=== PATIENT | female | born 1940 | race African-American/Black ===

== ENCOUNTER 2021-07-16 21:05 | Emergency (ER) | payer MEDICARE, OTHER ==
[2021-07-16 21:35] VITALS: BP 132/83; PULSE 96; TEMP 98.6; BMI 26.6
[2021-07-16] MEDS ORDERED: LIDOCAINE PATCH REMOVAL MC SCH (22:00)
[2021-07-16] MEDS ORDERED: LIDOCAINE 5% TOPICAL PATCH TP ONE (23:46)
[2021-07-16] MEDS ORDERED: ACETAMINOPHEN 500 MG TABLET (FP) PO ONE (23:46)
[2021-07-16] MEDS ORDERED: KETOROLAC TROMETHAMINE 30 MG/1 ML VIAL IM ONE (23:46)
[2021-07-17] MEDS ORDERED: LIDOCAINE 5% TOPICAL PATCH ONE (00:44)
[2021-07-17] MEDS ORDERED: KETOROLAC TROMETHAMINE 30 MG/1 ML VIAL ONE (00:44)
[2021-07-17] MEDS ORDERED: ACETAMINOPHEN 325 MG TABLET (FP) ONE (00:44)
[2021-07-17 01:21] LABS: EPI CELLS 15 /uL (0-25.1); HYALINE CASTS 1 /uL (0-3.1); URINE APPEARANCE CLEAR; URINE BACTERIA 139 /uL (0-1359); URINE BILIRUBIN NEGATIVE (NEGATIVE); URINE COLOR YELLOW; URINE GLUCOSE (UA) NEGATIVE (NEGATIVE); URINE KETONE NEGATIVE (NEGATIVE); URINE LEUK ESTERASE 1+ (NEGATIVE); URINE NITRITE NEGATIVE (NEGATIVE); URINE PROTEIN TRACE (NEGATIVE); URINE RBC 108 /uL (0-23.9); URINE WBC 25 /uL (0-25.8)
[2021-07-17 01:57] LABS: BASO % 0.2 % (0-2.0); EOS % 0.1 % (0-4.5); HEMATOCRIT 37.2 % (32.4-45.2); HEMOGLOBIN 12.7 GM/dL (10.7-15.3); LYMPH % 19.9 % (8-40); MCHC 34.1 g/dl (32.0-36.0); MEAN CELL VOLUME 90.7 fl (80-96); MEAN PLT VOLUME 7.7 fl (7.5-11.1); MONO % 10.3 % (3.8-10.2); NEUT % 69.5 % (42.8-82.8); PLATELET COUNT 211 10^3/uL (134-434); RDW 15.7 % (11.6-15.6); WHITE BLOOD COUNT 8.1 K/mm3 (4.0-10.0)
[2021-07-17] MEDS ORDERED: CEFTRIAXONE 1 GM in DEXTROSE 5%-WATER - 100 ML IVPB ONE (02:22)
[2021-07-17 02:26] LABS: BLOOD UREA NITROGEN 13.8 mg/dL (7-18); CALCIUM 9.9 mg/dL (8.5-10.1)
[2021-07-17] MEDS ORDERED: POTASSIUM CHLORIDE ORAL LIQUID 20 MEQ/15 ML PO ONE (02:27)
[2021-07-17 02:30] LABS: CREATININE 0.9 mg/dL (0.55-1.3)
[2021-07-17 02:31] LABS: BILIRUBIN,TOTAL 0.4 mg/dL (0.2-1); TOT PROT 10.4 g/dl (6.4-8.2)
[2021-07-17] MEDS ORDERED: POTASSIUM CHLORIDE ORAL LIQUID 20 MEQ/15 ML ONE (02:46)
[2021-07-17] MEDS ORDERED: CEFTRIAXONE 1 GM/50 ML BAG ONE (02:46)
== END 2021-07-17 04:23 | disposition home or self-care (01) ==
LOC: JERFT 21:05 → JER 21:05
DX: E87.1 Hypo-osmolality and hyponatremia (principal); N85.2 Hypertrophy of uterus; N10 Acute pyelonephritis; M54.50 Low back pain, unspecified
CPT/HCPCS: 36415; 74176-TC; 80053; 81003; 85025; 87077; 87086; 99284-25

== ENCOUNTER 2021-07-18 14:42 | Emergency (ER) | payer OTHER ==
[2021-07-18 15:00] VITALS: BP 139/87; PULSE 86; TEMP 98.6; BMI 25.8
[2021-07-18] MEDS ORDERED: LIDOCAINE 5% TOPICAL PATCH TP ONE ×2 (15:36→16:09)
[2021-07-18] MEDS ORDERED: ACETAMINOPHEN 500 MG TABLET (FP) PO ONE (15:36)
[2021-07-18] MEDS ORDERED: LIDOCAINE 5% TOPICAL PATCH ONE ×2 (15:54→16:15)
[2021-07-18] MEDS ORDERED: ACETAMINOPHEN 325 MG TABLET (FP) ONE (15:54)
[2021-07-18] MEDS ORDERED: KETOROLAC TROMETHAMINE 30 MG/1 ML VIAL IM ONE (17:06)
[2021-07-18] MEDS ORDERED: KETOROLAC TROMETHAMINE 30 MG/1 ML VIAL ONE (17:12)
[2021-07-18] MEDS ORDERED: METHOCARBAMOL 500 MG TABLET PO ONE (18:15)
[2021-07-18] MEDS ORDERED: METHOCARBAMOL 500 MG TABLET ONE (18:30)
[2021-07-19] MEDS ORDERED: LIDOCAINE PATCH REMOVAL MC SCH ×2 (04:00→05:00)
== END 2021-07-18 20:13 | disposition home or self-care (01) ==
LOC: JER 14:42
PROC: 3E0233Z Introduction of Anti-inflammatory into Muscle, Percutaneous Approach (ICD-10-PCS; principal; 2021-07-18)
DX: M54.50 Low back pain, unspecified (principal)
CPT/HCPCS: 99284-25

== ENCOUNTER 2021-08-14 10:35 | Inpatient (IN) | payer OTHER ==
[2021-08-14] MEDS ORDERED: ACETAMINOPHEN 500 MG TABLET (FP) PO ONE (12:54)
[2021-08-14] MEDS ORDERED: ACETAMINOPHEN 325 MG TABLET (FP) ONE (13:39)
[2021-08-14] MEDS ORDERED: LIDOCAINE 5% TOPICAL PATCH TP ONE (13:40)
[2021-08-14] MEDS ORDERED: LIDOCAINE 5% TOPICAL PATCH ONE (14:04)
[2021-08-14 15:11] LABS: BASO % 0.2 % (0-2.0); EOS % 0.2 % (0-4.5); HEMATOCRIT 40.2 % (32.4-45.2); HEMOGLOBIN 13.2 GM/dL (10.7-15.3); LYMPH % 21.8 % (8-40); MCH 29.9 pg (25.7-33.7); MCHC 32.9 g/dl (32.0-36.0); MEAN PLT VOLUME 8.4 fl (7.5-11.1); MONO % 12.1 % (3.8-10.2); NEUT % 65.7 % (42.8-82.8); PLATELET COUNT 244 10^3/uL (134-434); RBC 4.42 M/mm3 (3.60-5.2); RDW 15.8 % (11.6-15.6); WHITE BLOOD COUNT 10.9 K/mm3 (4.0-10.0)
[2021-08-14 15:31] LABS: EPI CELLS 13 /uL (0-25.1); HYALINE CASTS 3 /uL (0-3.1); URINE APPEARANCE CLOUDY; URINE BACTERIA 34 /uL (0-1359); URINE BILIRUBIN NEGATIVE (NEGATIVE); URINE COLOR YELLOW; URINE GLUCOSE (UA) NEGATIVE (NEGATIVE); URINE KETONE NEGATIVE (NEGATIVE); URINE LEUK ESTERASE 1+ (NEGATIVE); URINE NITRITE NEGATIVE (NEGATIVE); URINE PROTEIN TRACE (NEGATIVE); URINE RBC 52 /uL (0-23.9); URINE WBC 17 /uL (0-25.8)
[2021-08-14 15:41] LABS: URINE CRYSTALS NEGATIVE /hpf
[2021-08-14] MEDS ORDERED: CEFTRIAXONE 1 GM in DEXTROSE 5%-WATER - 100 ML IVPB ONE (15:44)
[2021-08-14 15:45] LABS: CALCIUM 11.5 mg/dL (8.5-10.1)
[2021-08-14 15:46] LABS: ALBUMIN 3.2 g/dl (3.4-5.0); BLOOD UREA NITROGEN 17.8 mg/dL (7-18)
[2021-08-14 15:51] LABS: BILIRUBIN,TOTAL 0.3 mg/dL (0.2-1); TOT PROT 11.6 g/dl (6.4-8.2)
[2021-08-14] MEDS ORDERED: CEFTRIAXONE 1 GM/50 ML BAG ONE (16:02)
[2021-08-14] MEDS ORDERED: SODIUM CHLORIDE 0.9% 500 ML INFUS.BAG IV ONE (16:14)
[2021-08-14] MEDS ORDERED: KETOROLAC TROMETHAMINE 15 MG/ML VIAL IVPUSH ONE (17:16)
[2021-08-14] MEDS ORDERED: KETOROLAC TROMETHAMINE 15 MG/ML VIAL ONE (17:27)
[2021-08-14] MEDS ORDERED: LIDOCAINE PATCH REMOVAL MC ONE (22:00)
[2021-08-14] MEDS ORDERED: ACETAMINOPHEN 325 MG TABLET (FP) PO PRN (22:29)
[2021-08-14] MEDS ORDERED: KETOROLAC TROMETHAMINE 15 MG/ML VIAL IM PRN (22:31)
[2021-08-14] MEDS ORDERED: DOCUSATE SODIUM 100 MG CAPSULE (FP) PO ONE (23:34)
[2021-08-15] MEDS: LACTATED RINGERS SOLUTION 1,000 ML/1,000 ML INFUS.BAG IV SCH ×3 (00:01→23:05)
[2021-08-15] MEDS ORDERED: SENNOSIDES 8.6MG TABLET (FP) PO ONE (00:02)
[2021-08-15] MEDS ORDERED: DOCUSATE SODIUM 100 MG CAPSULE (FP) PO ONE (00:02)
[2021-08-15] MEDS ORDERED: KETOROLAC TROMETHAMINE 15 MG/ML VIAL ONE (00:07)
[2021-08-15] MEDS ORDERED: ACETAMINOPHEN 325 MG TABLET (FP) ONE (00:07)
[2021-08-15] MEDS: SENNOSIDES 8.6MG TABLET (FP) PO SCH ×2 (00:10→23:01)
[2021-08-15 02:34] VITALS: BMI 22.3
[2021-08-15] MEDS: LIDOCAINE PATCH REMOVAL MC SCH ×2 (02:34→23:00)
[2021-08-15] MEDS: KETOROLAC TROMETHAMINE 15 MG/ML VIAL IVPUSH SCH ×4 (02:35→17:26)
[2021-08-15] MEDS: ACETAMINOPHEN 1000 MG/100 ML BAG IVPB SCH ×4 (02:36→17:25)
[2021-08-15] MEDS: INSULIN SLIDING SCALE (NOVOLOG) 1 VIAL SQ SCH ×4 (06:43→23:07)
[2021-08-15 08:18] LABS: BASO % 0.2 % (0-2.0); EOS % 0.6 % (0-4.5); HEMATOCRIT 31.4 % (32.4-45.2); HEMOGLOBIN 10.7 GM/dL (10.7-15.3); MCHC 34.2 g/dl (32.0-36.0); MEAN CELL VOLUME 90.7 fl (80-96); MEAN PLT VOLUME 8.2 fl (7.5-11.1); MONO % 12.6 % (3.8-10.2); NEUT % 56.6 % (42.8-82.8); PLATELET COUNT 177 10^3/uL (134-434); RBC 3.46 M/mm3 (3.60-5.2); RDW 15.8 % (11.6-15.6); WHITE BLOOD COUNT 7.5 K/mm3 (4.0-10.0)
[2021-08-15 08:39] LABS: BLOOD UREA NITROGEN 19.2 mg/dL (7-18); MAGNESIUM 1.9 mg/dL (1.8-2.4)
[2021-08-15 08:42] LABS: CREATININE 0.8 mg/dL (0.55-1.3); PHOSPHOROUS 3.6 mg/dL (2.5-4.9)
[2021-08-15 08:43] LABS: BILIRUBIN,TOTAL 0.3 mg/dL (0.2-1)
[2021-08-15 08:46] LABS: ALBUMIN 2.3 g/dl (3.4-5.0); CALCIUM 9.4 mg/dL (8.5-10.1); TOT PROT 8.7 g/dl (6.4-8.2)
[2021-08-15] MEDS: DOCUSATE SODIUM 100 MG CAPSULE (FP) PO SCH (09:50)
[2021-08-15] MEDS: LIDOCAINE 5% TOPICAL PATCH TP SCH (09:51)
[2021-08-15] MEDS: amLODIPine BESYLATE 10 MG TABLET (FP) PO SCH (09:51)
[2021-08-15] MEDS: ENOXAPARIN NA (PORCINE) 40 MG/0.4 ML DISP.SYRIN SQ SCH (09:51)
[2021-08-16] MEDS: KETOROLAC TROMETHAMINE 15 MG/ML VIAL IVPUSH SCH ×5 (01:20→23:42)
[2021-08-16] MEDS: INSULIN SLIDING SCALE (NOVOLOG) 1 VIAL SQ SCH ×4 (06:00→21:24)
[2021-08-16 08:11] LABS: PARATHYROID HORM INTACT 16 pg/mL (15-65)
[2021-08-16] MEDS ORDERED: INSULIN (NOVOLOG) ASPART 100 UNITS/ML 10ML VIAL ONE (09:00)
[2021-08-16] MEDS: ENOXAPARIN NA (PORCINE) 40 MG/0.4 ML DISP.SYRIN SQ SCH (09:02)
[2021-08-16] MEDS: DOCUSATE SODIUM 100 MG CAPSULE (FP) PO SCH (09:03)
[2021-08-16] MEDS: amLODIPine BESYLATE 10 MG TABLET (FP) PO SCH (09:03)
[2021-08-16] MEDS: LIDOCAINE 5% TOPICAL PATCH TP SCH ×2 (09:03→09:06)
[2021-08-16] MEDS: LACTATED RINGERS SOLUTION 1,000 ML/1,000 ML INFUS.BAG IV SCH ×2 (11:39→23:42)
[2021-08-16] MEDS: LIDOCAINE PATCH REMOVAL MC SCH (21:23)
[2021-08-16] MEDS: SENNOSIDES 8.6MG TABLET (FP) PO SCH (21:24)
[2021-08-17] MEDS: KETOROLAC TROMETHAMINE 15 MG/ML VIAL IVPUSH SCH (05:30)
[2021-08-17 06:06] LABS: KAPPA/LAMBDA RATIO, UR 6.42 (1.83-14.26)
[2021-08-17] MEDS: INSULIN SLIDING SCALE (NOVOLOG) 1 VIAL SQ SCH ×4 (06:47→21:23)
[2021-08-17 08:35] LABS: BASO % 0.4 % (0-2.0); EOS % 1.3 % (0-4.5); HEMATOCRIT 34.1 % (32.4-45.2); HEMOGLOBIN 11.4 GM/dL (10.7-15.3); LYMPH % 34.4 % (8-40); MCH 30.5 pg (25.7-33.7); MCHC 33.4 g/dl (32.0-36.0); MEAN CELL VOLUME 91.3 fl (80-96); MEAN PLT VOLUME 8.4 fl (7.5-11.1); MONO % 14.2 % (3.8-10.2); NEUT % 49.7 % (42.8-82.8); PLATELET COUNT 172 10^3/uL (134-434); RBC 3.73 M/mm3 (3.60-5.2); RDW 15.6 % (11.6-15.6); WHITE BLOOD COUNT 4.9 K/mm3 (4.0-10.0)
[2021-08-17 09:02] LABS: ALBUMIN 2.3 g/dl (3.4-5.0); CALCIUM 9.6 mg/dL (8.5-10.1); CREATININE 0.9 mg/dL (0.55-1.3)
[2021-08-17 09:04] LABS: BILIRUBIN,TOTAL 0.3 mg/dL (0.2-1); TOT PROT 9.1 g/dl (6.4-8.2)
[2021-08-17] MEDS: ENOXAPARIN NA (PORCINE) 40 MG/0.4 ML DISP.SYRIN SQ SCH (09:59)
[2021-08-17] MEDS: DOCUSATE SODIUM 100 MG CAPSULE (FP) PO SCH (10:00)
[2021-08-17] MEDS: amLODIPine BESYLATE 10 MG TABLET (FP) PO SCH (10:00)
[2021-08-17] MEDS ORDERED: ACETAMINOPHEN 325 MG TABLET (FP) PO PRN (10:00)
[2021-08-17] MEDS: LIDOCAINE 5% TOPICAL PATCH TP SCH (10:00)
[2021-08-17] MEDS: oxyCODONE HCL 5 MG TABLET PO PRN ×2 (13:05→21:25)
[2021-08-17 16:08] LABS: TOTAL PROTEIN, URINE 35.3 mg/dL (Not Estab.)
[2021-08-17] MEDS: LIDOCAINE PATCH REMOVAL MC SCH (21:20)
[2021-08-17] MEDS: SENNOSIDES 8.6MG TABLET (FP) PO SCH (21:21)
[2021-08-18] MEDS: INSULIN SLIDING SCALE (NOVOLOG) 1 VIAL SQ SCH ×3 (06:22→16:11)
[2021-08-18 08:52] LABS: BASO % 0.3 % (0-2.0); EOS % 1.1 % (0-4.5); HEMATOCRIT 34.6 % (32.4-45.2); HEMOGLOBIN 11.4 GM/dL (10.7-15.3); LYMPH % 37.5 % (8-40); MCH 30.4 pg (25.7-33.7); MCHC 33.1 g/dl (32.0-36.0); MEAN CELL VOLUME 91.7 fl (80-96); MEAN PLT VOLUME 8.3 fl (7.5-11.1); MONO % 13.2 % (3.8-10.2); NEUT % 47.9 % (42.8-82.8); PLATELET COUNT 179 10^3/uL (134-434); RBC 3.77 M/mm3 (3.60-5.2); RDW 15.5 % (11.6-15.6); WHITE BLOOD COUNT 5.7 K/mm3 (4.0-10.0)
[2021-08-18] MEDS: ENOXAPARIN NA (PORCINE) 40 MG/0.4 ML DISP.SYRIN SQ SCH (09:12)
[2021-08-18] MEDS: DOCUSATE SODIUM 100 MG CAPSULE (FP) PO SCH (09:13)
[2021-08-18] MEDS: LIDOCAINE 5% TOPICAL PATCH TP SCH (09:13)
[2021-08-18] MEDS: oxyCODONE HCL 5 MG TABLET PO PRN (09:14)
[2021-08-18] MEDS: amLODIPine BESYLATE 10 MG TABLET (FP) PO SCH (09:14)
[2021-08-18 09:20] LABS: ALBUMIN 2.5 g/dl (3.4-5.0)
[2021-08-18 09:23] LABS: CREATININE 0.8 mg/dL (0.55-1.3)
[2021-08-18 09:25] LABS: BILIRUBIN,TOTAL 0.3 mg/dL (0.2-1); TOT PROT 9.6 g/dl (6.4-8.2)
[2021-08-18 15:01] VITALS: BP 111/70; PULSE 60; TEMP 98.5
[2021-08-20 20:12] LABS: PARATHYROID RELATED PROTEIN < 2.0 pmol/L (.)
== END 2021-08-18 18:30 | disposition home or self-care (01) | DRG 544 ==
LOC: JER 10:35 → JERBED 20:42 → J8W 08-15 02:25 → J7W 08-15 18:50
PROVIDERS: ADMIT Hospitalist
DX: M48.56XA Collapsed vertebra, not elsewhere classified, lumbar region, initial encounter for fracture (principal); M48.54XA Collapsed vertebra, not elsewhere classified, thoracic region, initial encounter for fracture; I10 Essential (primary) hypertension; E78.5 Hyperlipidemia, unspecified; E11.9 Type 2 diabetes mellitus without complications; E86.0 Dehydration; E83.52 Hypercalcemia
CPT/HCPCS: 0241U-QW; 36415; 72128-TC; 72131-TC; 74176-TC; 80053; 81003; 82397; 82962; 83036; 83735; 83883; 83970; 84100; 84155; 84156; 84157; 84165; 85025; 87086; 93005; 93010; 97116-GP; 97162-GP; 99285-25